=== PATIENT | female | born 1995 | race Two or more races ===

== ENCOUNTER 2024-11-30 11:50 | Emergency (ER) | payer OTHER ==
[~2024-11-30] VITALS: Ht 157.5 cm; Wt 52.2 kg
[2024-11-30] MEDS ORDERED: KETOROLAC TROMETHAMINE 30 MG VIAL IV STA (14:41)
[2024-11-30] MEDS ORDERED: CLINDAMYCIN PHOSPHATE 150 MG/ML (900mg) IV STA (14:41)
[2024-11-30] MEDS ORDERED: ACETAMINOPHEN 500 MG GEL..CAP PO STA (14:42)
== END 2024-11-30 17:25 | disposition home or self-care (01) ==
LOC: ER 11:53
DX: L02.32 Furuncle of buttock (principal)

== ENCOUNTER 2025-02-10 06:57 | Day surgery (SDC) | payer OTHER ==
[2025-02-10] MEDS ORDERED: DIPHENHYDRAMINE HCL 50 MG/ML VIAL 1ML IV ONE (10:45)
[2025-02-10] MEDS ORDERED: fentaNYL CITRATE 50 MCG/ML AMPUL IV PUSH ONE (10:45)
[2025-02-10] MEDS ORDERED: MIDAZOLAM HCL 2 MG/2 ML VIAL IV ONE (10:45)
[2025-02-10] MEDS ORDERED: ONDANSETRON HCL 2 MG/ML VIAL IV ONE (10:45)
== END 2025-02-10 11:35 | disposition home or self-care (01) ==
LOC: AMB-ENDOS 06:57
PROVIDERS: ATTEND Colon & Rectal Surgery
DX: R19.4 Change in bowel habit (principal); Z12.11 Encounter for screening for malignant neoplasm of colon; K64.8 Other hemorrhoids